=== PATIENT | female | born 1990 ===

== ENCOUNTER 2019-10-27 15:49 | Outpatient (REF) | payer SELFPAY ==
[2019-10-30 20:43] LABS: COVID-19 RT-PCR Result NEGATIVE (Negative)
== END 2019-10-27 16:09 ==
LOC: NCHCN 15:49
PROVIDERS: Visit Provider Family Medicine
DX: Z20.828 Contact with and (suspected) exposure to other viral communicable diseases (principal)
CPT/HCPCS: U0003

== ENCOUNTER 2019-12-01 14:21 | Outpatient (REF) | payer SELFPAY ==
[2019-12-04 20:23] LABS: COVID-19 RT-PCR Result NEGATIVE (Negative)
== END 2019-12-01 14:41 ==
LOC: NCHCN 14:21
PROVIDERS: Visit Provider Family Medicine
DX: R51.9 Headache, unspecified (principal)
CPT/HCPCS: U0003

== ENCOUNTER 2020-01-01 14:25 | Outpatient (REF) | payer SELFPAY ==
[2020-01-04 18:49] LABS: SARS-CoV-2 RNA Not Detected (NotDetected); SARS-CoV-2 RNA Source Nasal/Nares
== END 2020-01-01 14:45 ==
LOC: NCHCN 14:25
PROVIDERS: Visit Provider Nurse Practitioner Family
DX: Z20.828 Contact with and (suspected) exposure to other viral communicable diseases (principal)
CPT/HCPCS: U0003

== ENCOUNTER 2020-02-01 16:21 | Outpatient (REF) | payer SELFPAY ==
[2020-02-04 16:50] LABS: COVID-19 RT-PCR Result NEGATIVE (Negative)
== END 2020-02-01 16:41 ==
LOC: NCHCN 16:21
PROVIDERS: PCP Nurse Practitioner Family; Visit Provider Nurse Practitioner Family
DX: Z11.59 Encounter for screening for other viral diseases (principal)
CPT/HCPCS: U0003